=== PATIENT | female | born 1970 | race Caucasian/White ===

== ENCOUNTER 2019-09-01 02:15 | Emergency (ER) | payer BC ==
[~2019-09-01] VITALS: Ht 160 cm; Wt 63.6 kg
[2019-09-01 02:19] VITALS: BP 121/78
[2019-09-01] MEDS ORDERED: proparacaine 0.5% ophthalmic drops 15ml RIGHTEYE ONE (02:35)
[2019-09-01] MEDS ORDERED: ibuprofen 200mg tablet PO ONE (02:50)
[2019-09-01] MEDS ORDERED: ibuprofen tablet 400 MG TABLET PO ONE (02:50)
== END 2019-09-01 02:57 | disposition home or self-care (01) ==
LOC: ER 02:16
DX: R20.2 Paresthesia of skin (principal); H57.89 Other specified disorders of eye and adnexa; Z88.2 Allergy status to sulfonamides
CPT/HCPCS: 99283